=== PATIENT | male | born 1990 | race Caucasian/White ===

== ENCOUNTER 2018-02-18 00:32 | Emergency (ER) | payer SELFPAY ==
[~2018-02-18] VITALS: Ht 167.6 cm; Wt 70.3 kg
[~2018-02-18 00:32] MED LIST: AMOX500C PO; DEXA4TAB PO
[2018-02-18] MEDS ORDERED: IV NORMAL SALINE 1000ML BAG 1,000 ML IV ONE (01:00)
--- NOTE | 2018-02-18 01:00 | PHYS DOC ---
Past Medical History Past Medical History: No Pertinent History Past Surgical History: No Surgical History Alcohol Use: Occasionally Drug Use: None Adult General Chief Complaint Chief Complaint: SORE THROAT HPI HPI Patient is a 28 year old man who presents with sore throat Patient had onset of sore throat 4 days ago associated with voice change. He's had progressive pain over the last 4 days with pain on swallowing. He denies difficulty breathing. He denies any fevers. He's had prior sore throat over the last 4 years but has not had any ENT referral. Review of Systems Review of Systems Constitutional: Denies fever or chills Eyes: Denies change in visual acuity, redness, or eye pain HENT: Denies nasal congestion, with sore throat Respiratory: Denies cough or shortness of breath Cardiovascular: Denies chest pain or palpitations GI: Denies abdominal pain, nausea, vomiting, bloody stools or diarrhea : Denies dysuria or hematuria Musculoskeletal: Denies back pain or joint pain Integument: Denies rash or skin lesions Neurologic: Denies headache, focal weakness or sensory changes Endocrine: Denies polyuria or polydipsia All other systems were reviewed and found to be within normal limits, except as documented in this note. Current Medications Current Medications Current Medications Medications (Trade) Dose Ordered Sig/Jermaine Start Time Stop Time Status Last Admin Dose Admin Clindamycin Phosphate 50 ml @ 100 mls/hr 1X ONCE 02/18/18 01:15 02/18/18 01:44 DC 02/18/18 01:15 100 MLS/HR Dexamethasone Sodium Phosphate (Decadron) 20 mg 1X ONCE 02/18/18 01:15 02/18/18 01:16 DC 02/18/18 01:15 20 MG Sodium Chloride 1,000 ml @ 1,000 mls/hr 1X ONCE 02/18/18 01:00 02/18/18 01:59 DC 02/18/18 01:11 1,000 MLS/HR Allergies Allergies Allergies Coded Allergies Type Severity Reaction Last Updated Verified No Known Drug Allergies 03/11/17 No Physical Exam Physical Exam Constitutional: Well developed, well nourished, no acute distress, non-toxic appearance. HENT: Normocephalic, atraumatic, bilateral external ears normal, oropharynx moist, no oral exudates, nose normal. Tonsils 4+ kissing with erythema, no exudate bilaterally. He has a pre-tonsillar erythema on soft palate bilaterally , Uvula midline Eyes: PERRLA, EOMI, conjunctiva normal, no discharge. Neck: Normal range of motion, with bilateral anterior cervical adenopathy tender to palpation, supple, no stridor. No floor of mouth swelling. Cardiovascular:Heart rate regular rhythm, no murmur Lungs & Thorax: Bilateral breath sounds clear to auscultation Abdomen: Bowel sounds normal, soft, no tenderness, no masses, no pulsatile masses. Skin: Warm, dry, no erythema, no rash. Back: No tenderness, no CVA tenderness. Extremities: No tenderness, no cyanosis, no clubbing, ROM intact, no edema. Neurologic: Alert and oriented X 3, normal motor function, normal sensory function, no focal deficits noted. Psychologic: Affect normal, judgement normal, mood normal. Current Patient Data Vital Signs Vital Signs Date Time Temp Pulse Resp B/P (MAP) Pulse Ox O2 Delivery O2 Flow Rate FiO2 02/18/18 02:36 73 16 105/72 (83) 99 Room Air 02/18/18 00:33 98.0 98.0 Lab Values Laboratory Tests Test 02/18/18 01:10 02/18/18 01:30 White Blood Count 12.0 x10^3/uL (4.0-11.0) H Red Blood Count 5.09 x10^6/uL (4.30-5.70) Hemoglobin 14.6 g/dL (13.0-17.5) Hematocrit 41.7 % (39.0-53.0) Mean Corpuscular Volume 82 fL (79-100) Mean Corpuscular Hemoglobin 29 pg (25-35) Mean Corpuscular Hemoglobin Concent 35 g/dL (31-37) Red Cell Distribution Width 13.4 % (11.5-14.5) Platelet Count 186 x10^3/uL (140-400) Neutrophils (%) (Auto) 45 % (31-73) Lymphocytes (%) (Auto) 46 % (24-48) Monocytes (%) (Auto) 6 % (0-9) Eosinophils (%) (Auto) 2 % (0-3) Basophils (%) (Auto) 1 % (0-3) Neutrophils # (Auto) 5.4 x10^3uL (1.8-7.7) Lymphocytes # (Auto) 5.5 x10^3/uL (1.0-4.8) H Monocytes # (Auto) 0.7 x10^3/uL (0.0-1.1) Eosinophils # (Auto) 0.2 x10^3/uL (0.0-0.7) Basophils # (Auto) 0.1 x10^3/uL (0.0-0.2) Sodium Level 141 mmol/L (136-145) Potassium Level 3.9 mmol/L (3.5-5.1) Chloride Level 103 mmol/L (98-107) Carbon Dioxide Level 30 mmol/L (21-32) Anion Gap 8 (6-14) Blood Urea Nitrogen 14 mg/dL (8-26) Creatinine 1.1 mg/dL (0.7-1.3) Estimated GFR (Cockcroft-Gault) 79.7 BUN/Creatinine Ratio 13 (6-20) Glucose Level 115 mg/dL (70-99) H Calcium Level 9.4 mg/dL (8.5-10.1) Total Bilirubin 0.5 mg/dL (0.2-1.0) Aspartate Amino Transferase (AST) 32 U/L (15-37) Alanine Aminotransferase (ALT) 75 U/L (16-63) H Alkaline Phosphatase 107 U/L (46-116) Total Protein 8.5 g/dL (6.4-8.2) H Albumin 4.0 g/dL (3.4-5.0) Albumin/Globulin Ratio 0.9 (1.0-1.7) L Heterophil Agglutinins Negative (NEGATIVE) Group A Streptococcus Rapid Negative (NEGATIVE) Laboratory Tests 02/18/18 01:10 Laboratory Tests 02/18/18 01:10 Microbiology 02/18/18 Throat Culture - Final, Complete 02/18/18 - Final, Complete EKG EKG [] Radiology/Procedures Radiology/Procedures [facility] [address] [place] [address] IMAGING REPORT Signed PATIENT: KATHLEEN BLACK ACCOUNT: [id number] : 1990 LOCATION: ER AGE: 28 SEX: M EXAM STATUS: REG ER ORD. PHYSICIAN: ELVIN FELIPE MD REASON: sorethroat PROCEDURE: NECK SOFT TISSUE EXAM: AP and lateral views of the neck with soft tissue detail DATE: 02/18/2018 12:56 AM CLINICAL HISTORY: sore throat COMPARISON: None FINDINGS: Views of the neck with soft tissue detail are negative for prevertebral soft tissue swelling or gas collection. The epiglottis is delicate and the aryepiglottic folds are not thickened. Visualized airway is patent. Negative definite retained radiopaque foreign body at the visualized airway or cervical esophagus. IMPRESSION: Normal views of the soft tissue neck without findings for retained radiopaque foreign body or epiglottitis. Electronically signed by: Jaden Castro MD (02/18/2018 1:41 AM) [facility] Course & Med Decision Making Course & Med Decision Making Pertinent Labs and Imaging studies reviewed. (See chart for details) Emergency Department course Patient presents with sore throat DDx- Strep pharyngitis, tonsillitis, peritonsillar abscess, epiglottis Patient was stable in the ED. 02:00 Patient improved after IV Decadron and clindamycin. Labs remarkable for leukocytosis. Monospot was negative. Rapid strep was negative. Soft tissue neck showed no swelling of the epiglottis. There is tonsillar swelling. Patient has no stridor or airway compromise. Patient will follow-up with PCP and ENT referral. Patient advised to return to the ED if his sore throat gets worse, he develops difficulty breathing or worse pain on swallowing. Dragon Disclaimer Dragon Disclaimer This electronic medical record was generated, in whole or in part, using a voice recognition dictation system. Departure Departure Impression: Primary Impression: Cellulitis of tonsil Disposition: HOME, SELF-CARE Condition: STABLE Referrals: NO PCP (PCP) GISELLE PALOMINO MD Follow-up tomorrow for further evaluation Patient Instructions: Tonsillitis Additional Instructions: Follow-up with Dr. Giselle Palomino ENT tomorrow for further evaluation If you develop worse pain, swelling, difficulty breathing, swallowing, vomiting returned to the emergency department immediately Scripts Ibuprofen (IBUPROFEN) 600 Mg Tablet 600 MG PO Q 8hrs PRN for INFLAMMATION for 5 Days, #15 TAB Take with food Prov: ELVIN FELIPE MD 02/18/18 Methylprednisolone (MEDROL) 4 Mg Tablet 4 MG PO UD, #21 TAB Prov: ELVIN FELIPE MD 02/18/18 Clindamycin Hcl (CLINDAMYCIN HCL) 300 Mg Capsule 1 CAP PO TID, #30 CAP Prov: ELVIN FELIPE MD 02/18/18 ELVIN FELIPE MD Feb 18, 2018 01:00
[2018-02-18] MEDS ORDERED: DEXAMETHASONE SOD PHOS 20 MG/5 ML VIAL. IV ONE (01:15)
[2018-02-18] MEDS ORDERED: CLINDAMYCIN 900MG PREMIX 50 ML IV ONE (01:15)
[2018-02-18 01:21] LABS: BASO # 0.1 x10^3/uL (0.0-0.2); BASO % 1 % (0-3); EOS # 0.2 x10^3/uL (0.0-0.7); EOS % 2 % (0-3); HEMATOCRIT 41.7 % (39.0-53.0); HEMOGLOBIN 14.6 g/dL (13.0-17.5); LYMPH # 5.5 x10^3/uL (1.0-4.8); LYMPH % 46 % (24-48); MEAN CORPUSCULAR HEMOGLOBIN 29 pg (25-35); MEAN CORPUSCULAR HGB CONC 35 g/dL (31-37); MEAN CORPUSCULAR VOLUME 82 fL (79-100); MONO # 0.7 x10^3/uL (0.0-1.1); MONO % 6 % (0-9); NEUT # 5.4 x10^3uL (1.8-7.7); NEUT % 45 % (31-73); PLATELET COUNT 186 x10^3/uL (140-400); RED BLOOD COUNT 5.09 x10^6/uL (4.30-5.70); RED CELL DISTRIBUTION WIDTH 13.4 % (11.5-14.5)
[2018-02-18 01:34] LABS: CALCIUM 9.4 mg/dL (8.5-10.1); CREATININE 1.1 mg/dL (0.7-1.3); GFR 79.7; POTASSIUM 3.9 mmol/L (3.5-5.1)
[2018-02-18 01:36] LABS: MONONUCLEOSIS PATIENT NEGATIVE (NEGATIVE)
[2018-02-18 01:40] LABS: ALBUMIN/GLOBULIN RATIO 0.9 (1.0-1.7); TOTAL BILIRUBIN 0.5 mg/dL (0.2-1.0); TOTAL PROTEIN 8.5 g/dL (6.4-8.2)
--- NOTE | 2018-02-18 01:44 | RAD ---
EXAM: AP and lateral views of the neck with soft tissue detail DATE: 02/18/2018 12:56 AM CLINICAL HISTORY: sore throat COMPARISON: None FINDINGS: Views of the neck with soft tissue detail are negative for prevertebral soft tissue swelling or gas collection. The epiglottis is delicate and the aryepiglottic folds are not thickened. Visualized airway is patent. Negative definite retained radiopaque foreign body at the visualized airway or cervical esophagus. IMPRESSION: Normal views of the soft tissue neck without findings for retained radiopaque foreign body or epiglottitis. Electronically signed by: Jaden Castro MD (02/18/2018 1:41 AM) [facility] [place]
[2018-02-18] MEDS ORDERED: IBUP-1007 PO (02:17)
[2018-02-18] MEDS ORDERED: CLIN300C8 PO (02:17)
[2018-02-18] MEDS ORDERED: METH4TAB PO (02:17)
[2018-02-18 02:36] VITALS: BP 105/72
== END 2018-02-18 02:55 | disposition home or self-care (01) ==
LOC: ER 00:32
DX: J36 Peritonsillar abscess (principal)
CPT/HCPCS: 36415; 70360; 80053; 85025; 86308; 87070; 87880; 96365; 96375; 99285; J1100; J3490; J7030

== ENCOUNTER 2019-05-05 20:14 | Emergency (ER) | payer OTHER ==
[~2019-05-05] VITALS: Ht 165.1 cm; Wt 72.6 kg
[~2019-05-05 20:14] MED LIST changes: +CLIN300C8 PO; +IBUP-1007 PO; +METH4TAB PO
[2019-05-05 20:40] VITALS: BP 122/78
[2019-05-05 21:51] LABS: INFLUENZA A PATIENT NEGATIVE (NEGATIVE); INFLUENZA B PATIENT NEGATIVE (NEGATIVE)
[2019-05-05] MEDS ORDERED: METH4TAB2 PO (21:58)
[2019-05-05] MEDS ORDERED: BENZ100C PO (21:58)
--- NOTE | 2019-05-05 21:59 | PHYS DOC ---
Past Medical History Past Medical History: No Pertinent History Past Surgical History: No Surgical History Alcohol Use: Occasionally Drug Use: None Adult General Chief Complaint Chief Complaint: COUGH HPI HPI Patient is a 29 year old male who presents with cough, nasal congestion, sore throat for the last 10 days. Patient states when he is coughing it makes his chest hurt. He rates his overall discomfort at this time a 6 out of 10. He states she's been taking Mucinex cold and cough. Patient has no medical history. Review of Systems Review of Systems HENT: nasal congestion or sore throat [] Respiratory: cough or denies shortness of breath [] All other systems were reviewed and found to be within normal limits, except as documented in this note. Allergies Allergies Allergies Coded Allergies Type Severity Reaction Last Updated Verified No Known Drug Allergies 03/11/17 No Physical Exam Physical Exam Constitutional: Well developed, well nourished, no acute distress, non-toxic appearance. [] HENT: Normocephalic, atraumatic, bilateral external ears normal, oropharynx moist, no oral exudates, nose normal. [] Eyes: PERRLA, EOMI, conjunctiva normal, no discharge. [] Neck: Normal range of motion, no tenderness, supple, no stridor. [] Cardiovascular:Heart rate regular rhythm, no murmur [] Lungs & Thorax: Bilateral breath sounds clear to auscultation [] Abdomen: Bowel sounds normal, soft, no tenderness, no masses, no pulsatile masses. [] Skin: Warm, dry, no erythema, no rash. [] Back: No tenderness, no CVA tenderness. [] Extremities: No tenderness, no cyanosis, no clubbing, ROM intact, no edema. [] Neurologic: Alert and oriented X 3, normal motor function, normal sensory func tion, no focal deficits noted. [] Psychologic: Affect normal, judgement normal, mood normal. Normal Physical Exam[] Current Patient Data Vital Signs Vital Signs Date Time Temp Pulse Resp B/P (MAP) Pulse Ox O2 Delivery O2 Flow Rate FiO2 05/05/19 20:40 98.6 96 12 122/78 (93) 99 Room Air 98.6 Lab Values Laboratory Tests Test 05/05/19 21:28 Influenza Type A Antigen Negative (NEGATIVE) Influenza Type B Antigen Negative (NEGATIVE) EKG EKG [] Radiology/Procedures Radiology/Procedures [] Course & Med Decision Making Course & Med Decision Making Lungs are clear to auscultation all lobes. Throat is pink without exudates. Bilateral tympanic is white. Afebrile vital signs within normal limits. Speaks in full clear sentences. Ambulatory with a steady gait. Skin pink warm and dry. Patient is eating and drinking appropriately. Patient denies shortness of breath, nausea, vomiting, diarrhea, fever. [] Dragon Disclaimer Dragon Disclaimer This electronic medical record was generated, in whole or in part, using a voice recognition dictation system. Departure Departure Impression: Primary Impression: URI (upper respiratory infection) Disposition: HOME, SELF-CARE Condition: STABLE Referrals: NO PCP (PCP) Patient Instructions: Upper Respiratory Infection, Adult Additional Instructions: Follow up with primary care provider. Drink plenty of fluids. Take medications as prescribed. Scripts Benzonatate (TESSALON PERLE) 100 Mg Capsule 1 CAP PO TID, #30 CAP Prov: PINEDA BARNES JUNIOR ACCOUNT MANAGER 05/05/19 Methylprednisolone (MEDROL) 4 Mg Tab.ds.pk 1 PKG PO UD, #1 PKG Prov: PINEDA BARNES JUNIOR ACCOUNT MANAGER 05/05/19 Problem Qualifiers Primary Impression: URI (upper respiratory infection) URI type: unspecified viral URI Qualified Codes: J06.9 - Acute upper resp iratory infection, unspecified PINEDA BARNES JUNIOR ACCOUNT MANAGER May 05, 2019 21:59
== END 2019-05-05 22:08 | disposition home or self-care (01) ==
LOC: ER 20:14
DX: J06.9 Acute upper respiratory infection, unspecified (principal)
CPT/HCPCS: 87804; 99284